=== PATIENT | female | born 1970 | race American Indian/Alaskan Native ===

== ENCOUNTER 2017-04-01 16:34 | Emergency (ER) | payer BC, OTHER ==
[2017-04-01 17:46] LABS: Anion Gap 16 mmol/L; Blood Urea Nitrogen 6 mg/dL (7-17); Carbon Dioxide 26 mmol/L (22-30); Chloride 98.4 mmol/L (98-107); Glucose 203 mg/dL (65-100); Potassium 4.1 mmol/L (3.6-5.0); Sodium 136 mmol/L (137-145)
[2017-04-01 17:57] LABS: Eosinophils % (Auto) 1.5 % (0.0-4.3); Mean Corpuscular HGB Conc 29 % (30-34); Platelet Count 280 K/mm3 (140-440); Red Blood Count 4.88 M/mm3 (3.65-5.03); Red Cell Distribution Width 19.4 % (13.2-15.2); White Blood Count 9.1 K/mm3 (4.5-11.0)
[2017-04-01 17:58] LABS: Hematocrit 31.7 % (30.3-42.9); Hemoglobin 9.1 gm/dl (10.1-14.3); Mean Corpuscular Hemoglobin 19 pg (28-32); Mean Corpuscular Volume 65 fl (79-97)
[2017-04-01] MEDS ORDERED: TYLENOL PO ONE (22:27)
[2017-04-01] MEDS ORDERED: TYLENOL ONE (22:32)
[2017-04-01] MEDS ORDERED: ZOFRAN ODT PO ONE (23:31)
--- NOTE | 2017-04-02 00:16 | Emergency Department Report ---
ED Female HPI - General Chief complaint: Vaginal Bleeding Stated complaint: VAGINAL BLEEDING,VOMITING Time Seen by Provider: 04/02/17 00:16 Source: patient, RN notes reviewed, old records reviewed Mode of arrival: Ambulatory Limitations: No Limitations - History of Present Illness Initial comments: This is a 47-year-old female, who was previously unknown to me, with a past medical history of uterine fibroids, presents to the ER with lower abdominal cramping, nausea, clear, nonbilious and non-bloody emesis, and vaginal bleeding. Her symptoms have been going on for the past few days. The abdominal cramping is in the lower region, does not radiate anywhere, increases with palpation and decreases with rest. No irritative or obstructive urinary symptoms. No headache, neck pain, chest pain, shortness of breath. MD Complaint: vaginal bleeding -: Gradual Location: suprapubic Severity: moderate Quality: cramping Consistency: intermittent Improves with: other (rest) Worsens with: movement Are you Now?: No Associated Symptoms: vaginal discharge, abdominal pain, nausea/vomiting, loss of appetite, weakness - Related Data Sexually active: Yes Home Medications Medication Instructions Recorded Confirmed Last Taken Olmesartan/Hydrochlorothiazide 1 tab PO QDAY 10/27/13 09/25/14 09/24/14 [Benicar HCT 40-12.5 mg] Sucralfate [Carafate] 1 gm PO Q6HR 09/25/14 09/25/14 09/24/14 19:00 Previous Rx's Medication Instructions Recorded Last Taken Type Ketorolac [Toradol] 10 mg PO Q6H PRN #20 tablet 04/02/17 Unknown Rx Ondansetron [Zofran Odt] 4 mg PO QID PRN #20 tab.rapdis 04/02/17 Unknown Rx Promethazine [Phenergan SUPPOS] 50 mg WI Q6H PRN #20 supp.rect 04/02/17 Unknown Rx Allergies Allergy/AdvReac Type Severity Reaction Status Date / Time aspirin Allergy Unknown Verified 09/25/14 01:48 ED Review of Systems ROS: Stated complaint: VAGINAL BLEEDING,VOMITING Other details as noted in HPI Constitutional: denies: fever Eyes: denies: eye discharge ENT: denies: epistaxis Respiratory: denies: cough Cardiovascular: denies: chest pain Gastrointestinal: abdominal pain Genitourinary: abnormal menses. denies: dysuria Musculoskeletal: denies: back pain Skin: denies: lesions Neurological: denies: weakness ED Past Medical Hx - Past Medical History Previous Medical History?: Yes Hx Hypertension: Yes Hx Asthma: Yes Additional medical history: gastritis, Uterine fibroids - Surgical History Past Surgical History?: Yes Additional Surgical History: x2, Uterine ablation - Social History Smoking Status: Never Smoker Substance Use Type: Alcohol, Non Opiate Pain - Medications Home Medications: Home Medications Medication Instructions Recorded Confirmed Last Taken Type Olmesartan/Hydrochlorothiazide 1 tab PO QDAY 10/27/13 09/25/14 09/24/14 History [Benicar HCT 40-12.5 mg] Sucralfate [Carafate] 1 gm PO Q6HR 09/25/14 09/25/14 09/24/14 19:00 History Ketorolac [Toradol] 10 mg PO Q6H PRN #20 tablet 04/02/17 Unknown Rx Ondansetron [Zofran Odt] 4 mg PO QID PRN #20 tab.rapdis 04/02/17 Unknown Rx Promethazine [Phenergan SUPPOS] 50 mg WI Q6H PRN #20 supp.rect 04/02/17 Unknown Rx ED Physical Exam - General Limitations: No Limitations General appearance: alert, in no apparent distress - Head Head exam: Present: atraumatic, normocephalic - Eye Eye exam: Present: normal appearance, EOMI. Absent: nystagmus - ENT ENT exam: Present: normal exam, normal orophraynx, mucous membranes moist, normal external ear exam - Neck Neck exam: Present: normal inspection, full ROM. Absent: tenderness, meningismus - Respiratory Respiratory exam: Present: normal lung sounds bilaterally. Absent: respiratory distress, wheezes, rales, rhonchi, stridor, chest wall tenderness - Cardiovascular Cardiovascular Exam: Present: normal rhythm, tachycardia, normal heart sounds. Absent: systolic murmur, diastolic murmur, rubs, gallop - GI/Abdominal GI/Abdominal exam: Present: soft, tenderness, normal bowel sounds, other (there is suprapubic tenderness. There is no right lower quadrant tenderness. No rebound, guarding or peritoneal signs). Absent: distended, guarding, rebound, rigid, pulsatile mass - External exam: Present: normal external exam Speculum exam: Present: normal speculum exam, vaginal bleeding Bi-manual exam: Present: normal bi-manual exam, other (escorted by ER neurodiagnostic technologist hvac installation technician BURTON ACKERMAN). Absent: cervical motion tendernes, adnexal tenderness , adnexal mass - Extremities Exam Extremities exam: Present: normal inspection, full ROM, normal capillary refill. Absent: pedal edema, joint swelling, calf tenderness - Back Exam Back exam: Present: normal inspection, full ROM. Absent: tenderness, CVA tenderness (R), CVA tenderness (L), muscle spasm, paraspinal tenderness, vertebral tenderness - Neurological Exam Neurological exam: Present: alert, oriented X3, normal gait, other (Extraocular movements intact. Tongue midline. No facial droop. Facial sensation intact to light touch in the V1, V2, V3 distribution bilaterally. 5 and 5 strength in 4 extremities.. Sensation is intact to light touch in 4 extremities.). Absent : motor sensory deficit - Psychiatric Psychiatric exam: Present: normal affect, normal mood - Skin Skin exam: Present: warm, dry, intact, normal color. Absent: rash ED Course Vital Signs 04/01/17 04/01/17 04/02/17 16:57 21:02 00:45 Temperature 98.8 F 98.7 F 98.1 F Pulse Rate 110 H 105 H 122 H Respiratory 22 18 20 Rate Blood Pressure 184/121 162/107 Blood Pressure 177/106 [Left] O2 Sat by Pulse 99 100 99 Oximetry 04/02/17 03:26 Temperature Pulse Rate 98 H Respiratory 20 Rate Blood Pressure Blood Pressure 132/77 [Left] O2 Sat by Pulse 99 Oximetry ED Medical Decision Making - Lab Data Result diagrams: 04/01/17 17:10 04/01/17 17:10 Vital Signs 04/01/17 04/01/17 04/02/17 16:57 21:02 00:45 Temperature 98.8 F 98.7 F 98.1 F Pulse Rate 110 H 105 H 122 H Respiratory 22 18 20 Rate Blood Pressure 184/121 162/107 Blood Pressure 177/106 [Left] O2 Sat by Pulse 99 100 99 Oximetry 04/02/17 03:26 Temperature Pulse Rate 98 H Respiratory 20 Rate Blood Pressure Blood Pressure 132/77 [Left] O2 Sat by Pulse 99 Oximetry Lab Results 04/01/17 04/01/17 04/01/17 Range/Units 17:10 17:10 17:15 WBC 9.1 (4.5-11.0) K/mm3 RBC 4.88 (3.65-5.03) M/mm3 Hgb 9.1 L (10.1-14.3) gm/dl Hct 31.7 (30.3-42.9) % MCV 65 L (79-97) fl MCH 19 L (28-32) pg MCHC 29 L (30-34) % RDW 19.4 H (13.2-15.2) % Plt Count 280 (140-440) K/mm3 Lymph % (Auto) 23.9 (13.4-35.0) % [place] % (Auto) 4.9 (0.0-7.3) % Eos % (Auto) 1.5 (0.0-4.3) % Baso % (Auto) 1.0 (0.0-1.8) % Lymph # 2.2 (1.2-5.4) K/mm3 [place] # 0.4 (0.0-0.8) K/mm3 Eos # 0.1 (0.0-0.4) K/mm3 Baso # 0.1 (0.0-0.1) K/mm3 Seg Neutrophils % 68.7 (40.0-70.0) % Seg Neutrophils # 6.3 (1.8-7.7) K/mm3 Sodium 136 L (137-145) mmol/L Potassium 4.1 (3.6-5.0) mmol/L Chloride 98.4 (98-107) mmol/L Carbon Dioxide 26 (22-30) mmol/L Anion Gap 16 mmol/L BUN 6 L (7-17) mg/dL Creatinine 0.5 L (0.7-1.2) mg/dL Estimated GFR > 60 ml/min BUN/Creatinine Ratio 12.00 % Glucose 203 H (65-100) mg/dL Calcium 9.0 (8.4-10.2) mg/dL HCG, Qual (Negative) Urine Color (Yellow) Urine Turbidity (Clear) Urine pH (5.0-7.0) Ur Specific [place] (1.003-1.030) Urine Protein (Negative) mg/dL Urine Glucose (UA) (Negative) mg/dL Urine Ketones (Negative) mg/dL Urine Blood (Negative) Urine Nitrite (Negative) Urine Bilirubin (Negative) Urine Urobilinogen (<2.0) mg/dL Ur Leukocyte Esterase (Negative) Urine WBC (Auto) (0.0-6.0) /HPF Urine RBC (Auto) (0.0-6.0) /HPF U Epithel Cells (Auto) (0-13.0) /HPF Urine Bacteria (Auto) (Negative) /HPF Blood Type A POSITIVE Antibody Screen Negative 04/01/17 04/02/17 Range/Units 22:45 02:19 WBC (4.5-11.0) K/mm3 RBC (3.65-5.03) M/mm3 Hgb (10.1-14.3) gm/dl Hct (30.3-42.9) % MCV (79-97) fl MCH (28-32) pg MCHC (30-34) % RDW (13.2-15.2) % Plt Count (140-440) K/mm3 Lymph % (Auto) (13.4-35.0) % [place] % (Auto) (0.0-7.3) % Eos % (Auto) (0.0-4.3) % Baso % (Auto) (0.0-1.8) % Lymph # (1.2-5.4) K/mm3 [place] # (0.0-0.8) K/mm3 Eos # (0.0-0.4) K/mm3 Baso # (0.0-0.1) K/mm3 Seg Neutrophils % (40.0-70.0) % Seg Neutrophils # (1.8-7.7) K/mm3 Sodium (137-145) mmol/L Potassium (3.6-5.0) mmol/L Chloride (98-107) mmol/L Carbon Dioxide (22-30) mmol/L Anion Gap mmol/L BUN (7-17) mg/dL Creatinine (0.7-1.2) mg/dL Estimated GFR ml/min BUN/Creatinine Ratio % Glucose (65-100) mg/dL Calcium (8.4-10.2) mg/dL HCG, Qual Negative (Negative) Urine Color Yellow (Yellow) Urine Turbidity Clear (Clear) Urine pH 7.0 (5.0-7.0) Ur Specific [place] 1.006 (1.003-1.030) Urine Protein <15 mg/dl (Negative) mg/dL Urine Glucose (UA) Neg (Negative) mg/dL Urine Ketones Tr (Negative) mg/dL Urine Blood Lg (Negative) Urine Nitrite Neg (Negative) Urine Bilirubin Neg (Negative) Urine Urobilinogen < 2.0 (<2.0) mg/dL Ur Leukocyte Esterase Sm (Negative) Urine WBC (Auto) 11.0 H (0.0-6.0) /HPF Urine RBC (Auto) > 182.0 (0.0-6.0) /HPF U Epithel Cells (Auto) 2.0 (0-13.0) /HPF Urine Bacteria (Auto) 2+ (Negative) /HPF Blood Type Antibody Screen - Radiology Data Radiology results: report reviewed, image reviewed Transvaginal ultrasound demonstrates fibroids. - Medical Decision Making Differential diagnosis: Dysfunctional uterine bleeding, fibroids, menstruation, menopause Assessment and plan: For a 7-year-old female with intermittent crampy painful vaginal bleeding, she is afebrile, with reassuring vital signs, her tachycardia has resolved, she is currently able to tolerate liquid feedings, and feels clinically improved to go home. She is accompanied by family member who is going to drive her home. She will be discharged with nausea medication, pain medication, instructions to follow up with outpatient gynecology. She is currently considering a hysterectomy. She reports being able to tolerate ibuprofen, Motrin, does not like aspirin because it upsets her stomach. However, she does not have a true nsaid allergy. Critical care attestation.: If time is entered above; I have spent that time in minutes in the direct care of this critically ill patient, excluding procedure time. ED Disposition Clinical Impression: Vaginal bleeding Disposition: DC-01 TO HOME OR SELFCARE Is pt being admited?: No Does the pt Need Aspirin: No Condition: Stable Instructions: Menstruation (ED) Additional Instructions: Take the pain medication, nausea medication as directed. Follow up with a scraper tender within the next month. Return to the ER right away with new pain, worsened pain, migration of pain, fevers, chills, lethargy, irritability, projectile vomiting, change in mental status, inability to tolerate liquid feeds. Return to the ER right away with bleeding within 2. Soaked through and through per hour, dizziness, lightheadedness, chest pain, shortness of breath, passing out. Prescriptions: Ketorolac [Toradol] 10 mg PO Q6H PRN #20 tablet PRN Reason: Pain Ondansetron [Zofran Odt] 4 mg PO QID PRN #20 tab.rapdis PRN Reason: Nausea Promethazine [Phenergan SUPPOS] 50 mg WI Q6H PRN #20 supp.rect PRN Reason: Nausea Referrals: KAMRYN DALE MD [Primary Care Provider] - 3-5 Days [facility] [Provider Group] - 3-5 Days [facility] [Provider Group] - 3-5 Days [facility] [Provider Group] - 3-5 Days Forms: Accompanied Note, Work/School Release Form(ED)
[2017-04-02] MEDS ORDERED: ZOFRAN IV ONE (01:46)
[2017-04-02] MEDS ORDERED: DILAUDID IV ONE (01:46)
[2017-04-02] MEDS ORDERED: TORADOL IV ONE (01:47)
--- NOTE | 2017-04-02 02:18 | Ultrasound Report ---
FINAL REPORT PROCEDURE: US TRANSVAGINAL TECHNIQUE: Real-time transabdominal sonography in multiple planes of the pelvis was performed with image documentation. This examination was performed without Doppler. Vascular abnormalities, including ovarian torsion, will not be detectable without Doppler evaluation. HISTORY: VAG BLEEDING HX FIBROIDS COMPARISON: No prior studies are available for comparison. FINDINGS: UTERUS Size: 14.5 x 6.5 x 9.8 cm. Endometrial thickness: 12.1 mm. Orientation: anteverted. Cervix: There is fluid in the endocervical canal.. Fibroids/masses: There is a submucosal fibroid measuring 7.9 x 6.7 x 6.8 centimeters. There is an intramural fibroid in the posterior body measuring 1.8 x 1.7 x 1.4 centimeters.. The ovaries are not identified. Pelvic fluid: None. Other: None. IMPRESSION: There is fluid in the endocervical canal.. There is a submucosal fibroid measuring 7.9 x 6.7 x 6.8 centimeters. There is an intramural fibroid in the posterior body measuring 1.8 x 1.7 x 1.4 centimeters.. The ovaries are not identified. . There is no free pelvic fluid.
--- NOTE | 2017-04-02 02:18 | Ultrasound Report ---
FINAL REPORT PROCEDURE: US TRANSVAGINAL TECHNIQUE: Real-time transvaginal sonography in multiple planes of the pelvis was performed with image documentation. This examination was performed without Doppler. Vascular abnormalities, including ovarian torsion, will not be detectable without Doppler evaluation. CPT 79409 HISTORY: VAG BLEEDING HX FIBROIDS COMPARISON: No prior studies are available for comparison. FINDINGS: UTERUS Size: 14.5 x 6.5 x 9.8 cm. Endometrial thickness: 12.1 mm. Orientation: anteverted. Cervix: There is fluid in the endocervical canal.. Fibroids/masses: There is a submucosal fibroid measuring 7.9 x 6.7 x 6.8 centimeters. There is an intramural fibroid in the posterior body measuring 1.8 x 1.7 x 1.4 centimeters.. The ovaries are not identified. Pelvic fluid: None. Other: None. IMPRESSION: There is fluid in the endocervical canal.. There is a submucosal fibroid measuring 7.9 x 6.7 x 6.8 centimeters. There is an intramural fibroid in the posterior body measuring 1.8 x 1.7 x 1.4 centimeters.. The ovaries are not identified. . There is no free pelvic fluid.
[2017-04-02 02:35] LABS: Bacteria,Urine 2+ /HPF (Negative); Bilirubin,Urine NEG (Negative); Blood,Urine LG (Negative); Ketones,Urine TR mg/dL (Negative); Leukocyte Esterase,Urine SM (Negative); Nitrite,Urine NEG (Negative); Protein,Urine <15 mg/dL mg/dL (Negative); Urobilinogen,Urine < 2.0 mg/dL (<2.0)
[2017-04-02 02:37] LABS: RBC,Urine > 182.0 /HPF (0.0-6.0)
[2017-04-02 03:28] VITALS: BP 132/77
== END 2017-04-02 04:07 | disposition home or self-care (01) ==
LOC: ED 16:34
DX: N93.9 Abnormal uterine and vaginal bleeding, unspecified (principal); I10 Essential (primary) hypertension; Z88.6 Allergy status to analgesic agent
CPT/HCPCS: 36415; 76830; 76856; 80048; 81001; 84703; 85025; 86850; 86900; 86901; 87210; 87591; 96374; 96375; 99285; J1170; J1885; J2405; Q0162

== ENCOUNTER 2017-06-30 12:28 | Observation (INO) | payer BC ==
--- NOTE | 2017-06-28 12:11 | Anesthesia Consultation ---
Anesthesia Consult and Med Hx Date of service: 06/30/17 - Airway ROM Head & Neck: Adequate Mental/Hyoid Distance: Adequate Mallampati Class: Class III Intubation Access Assessment: Possibly Difficult - Pulmonary Exam CTA: Yes - Cardiac Exam Cardiac Exam: RRR Anesthetic Concerns: L upper CI missing - Pre-Operative Health Status ASA Pre-Surgery Classification: ASA3 Proposed Anesthetic Plan: General - Pulmonary Hx Smoking: No Hx Asthma: Yes (INHALERS PRN) Hx Sleep Apnea: Yes (DX SLEEP APNEA WITH CPAP USE) - Cardiovascular System Hx Hypertension: Yes (X 5 YRS) - Endocrine Hx Non-Insulin Dependent Diabetes: Yes (REcent elevated A1C, on metformin for one week) - Hematic Hx Anemia: Yes - Other Systems Hx Cancer: No Hx Obesity: Yes (morbid)
[2017-06-28 12:52] LABS: BUN/Creatinine Ratio 14; Blood Urea Nitrogen 7 mg/dL (7-17); Calcium 8.6 mg/dL (8.4-10.2); Hemolysis Index 0
[2017-06-28 12:58] LABS: Basophils # (Auto) 0.1 K/mm3 (0.0-0.1); Basophils % (Auto) 1.2 % (0.0-1.8); Eosinophils # (Auto) 0.1 K/mm3 (0.0-0.4); Eosinophils % (Auto) 1.7 % (0.0-4.3); Lymphocytes # (Auto) 2.2 K/mm3 (1.2-5.4); Lymphocytes % (Auto) 27.8 % (13.4-35.0); Mean Corpuscular HGB Conc 29 % (30-34); Monocytes # (Auto) 0.4 K/mm3 (0.0-0.8); Monocytes % (Auto) 4.6 % (0.0-7.3); Platelet Count 267 K/mm3 (140-440); Red Blood Count 4.43 M/mm3 (3.65-5.03)
[2017-06-28 13:05] LABS: Hematocrit 28.7 % (30.3-42.9); Hemoglobin 8.2 gm/dl (10.1-14.3); Mean Corpuscular Hemoglobin 19 pg (28-32); Mean Corpuscular Volume 65 fl (79-97)
--- NOTE | 2017-06-30 06:15 | History and Physical Report ---
History of Present Illness Date of examination: 06/30/17 Date of admission: 06/30/2017 Chief complaint: dysfunctional bleeding and anemia History of present illness: 47y/o with dysfunctional uterine bleeding and multiple fibroids. The patient's bleeding is so severe she has developed iron deficiency anemia. Ultrasound demonstrates an enlarged uterus of 14.5cm with the largest myoma being a submucosal 8cm fibroid. Treatment options have been discussed.The patient is aware she will require a blood transfusion prior to surgery Patient has been reassessed/reevaluated/re-examined. H&P has been reviewed. No interval changes. Past History Past Medical History: asthma, hypertension, other (gastritis; obesity; anemia) Past Surgical History: section, other (eye surgery) Social history: single - Obstetrical History : 4 Para: 2 Hx # Term Pregnancies: 2 Number of Pregnancies: 0 Spontaneous Abortions: 0 Induced : 2 Number of Living Children: 2 Medications and Allergies Allergies Allergy/AdvReac Type Severity Reaction Status Date / Time aspirin Allergy ABD PAIN Verified 06/24/17 10:30 Iodinated Contrast- Oral and Allergy Itching Verified 06/24/17 10:30 IV Dye ondansetron Allergy Vomiting Verified 06/24/17 10:30 [From Zofran (as hydrochloride)] Home Medications Medication Instructions Recorded Confirmed Last Taken Type Sucralfate [Carafate] 1 gm PO QID 09/25/14 06/30/17 06/29/17 History ALBUTEROL Inhaler [Proair] 2 puff IH QID PRN 06/24/17 06/30/17 Unknown History Ascorbic Acid [Vitamin C] 1,000 mg PO BID 06/24/17 06/30/17 06/29/17 History Dicyclomine [Bentyl] 10 mg PO TID 06/24/17 06/30/17 06/29/17 History Ferrous Sulfate [Iron] 325 mg PO DAILY 06/24/17 06/30/17 06/29/17 History Metformin HCl [Glucophage] 1,000 mg PO BID 06/24/17 06/30/17 06/29/17 History Metoclopramide [Reglan] 10 mg PO PRN PRN 06/24/17 06/30/17 06/29/17 History Olmesartan (Nf) [Benicar (Nf)] 40 mg PO QDAY 06/24/17 06/30/17 06/30/17 History Pantoprazole [Protonix] 40 mg PO QDAY 06/24/17 06/30/17 06/30/17 History amLODIPine [Norvasc] 5 mg PO DAILY 06/24/17 06/30/17 06/30/17 History Active Meds: Active Medications Sodium Chloride (Nacl 0.9% 1000 Ml) 1,000 mls @ 125 mls/hr IV DIRECT MIRTHA Cefazolin Sodium (Ancef/Sterile Water 2 Gm/20 Ml) 2 gm in 20 mls @ 80 mls/hr IV PREOP MIRTHA PRN Reason: Protocol Sodium Chloride (Nacl 0.9% 500 Ml) 500 mls @ 0 mls/hr IV ONCE ONE PRN Reason: As Directed Stop: 06/30/17 06:09 - Vital Signs Vital signs: Vital Signs Temp Pulse Resp BP 99.4 F 88 18 148/92 06/28/17 11:30 06/28/17 11:30 06/28/17 11:30 06/28/17 11:30 Temp Pulse Resp BP Pulse Ox 99.4 F 88 18 148/92 06/28/17 11:30 06/28/17 11:30 06/28/17 11:30 06/28/17 11:30 Results Result Diagrams: 06/28/17 11:40 06/28/17 11:40 Abnormal lab results 06/28/17 Range/Units 11:40 Crossmatch See Detail All other labs normal. Assessment and Plan - Patient Problems (1) Leiomyoma Current Visit: Yes Status: Acute Plan to address problem: proceed with a robotic hysterectomy and transfusion of 2 units prbcs (2) Menorrhagia Current Visit: Yes Status: Acute (3) Anemia Current Visit: Yes Status: Acute
[~2017-06-30 12:28] MED LIST: ANCEF/STERILE WATER 2 GM/20 ML 2 GM/20 ML SYRINGE IV SCH; NACL 0.9% 1000 ML 1,000 ML IV SCH; NACL 0.9% 500 ML 500 ML IV ONE; PEPCID IV NR; VERSED IV NR
[2017-06-30] MEDS ORDERED: PROVENTIL IH NR (13:30)
[2017-06-30] MEDS ORDERED: DECADRON IV ONE (14:00)
[2017-06-30] MEDS ORDERED: PEPCID IV NR (14:00)
[2017-06-30] MEDS ORDERED: VERSED IV NR (14:00)
[2017-06-30] MEDS ORDERED: NEURONTIN PO NR (14:00)
[2017-06-30] MEDS ORDERED: SUBLIMAZE IV ONE (14:00)
--- NOTE | 2017-06-30 14:19 | Anesthesia Day of Surgery ---
Anesthesia Day of Surgery - Day of Surgery Patient Examined: Yes Patient H&P Reviewed: Yes Patient is NPO: Yes
[2017-06-30] MEDS ORDERED: DIPRIVAN 10 MG/ML IV ONE (14:27)
[2017-06-30] MEDS ORDERED: DILAUDID ONE (14:27)
[2017-06-30] MEDS ORDERED: ZEMURON IV ONE (14:29)
[2017-06-30] MEDS ORDERED: XYLOCAINE MPF 2% ONE (14:29)
[2017-06-30] MEDS ORDERED: THROMBIN (BOVINE) TP ONE ×2 (14:46→16:50)
[2017-06-30] MEDS ORDERED: NEOSPORIN GU IR ONE ×2 (14:47→16:50)
[2017-06-30] MEDS ORDERED: ANCEF/STERILE WATER 2 GM/20 ML IV NR (15:00)
[2017-06-30] MEDS ORDERED: DECADRON ONE (15:36)
[2017-06-30] MEDS ORDERED: NEO SYNEPHRINE/NS Syringe(OR USE) IV ONE (15:36)
[2017-06-30] MEDS ORDERED: NACL 0.9% 1000 ML 1,000 ML ONE ×2 (15:54→16:41)
[2017-06-30] MEDS ORDERED: GELFOAM POWDER 1GM MM ONE ×2 (16:00→16:50)
[2017-06-30] MEDS ORDERED: NACL 0.9% 100 ML ONE (16:05)
[2017-06-30] MEDS ORDERED: NEO SYNEPHRINE ONE (16:05)
[2017-06-30] MEDS ORDERED: BLOXIVERZ ONE (16:36)
[2017-06-30] MEDS ORDERED: ROBINUL ONE (16:37)
--- NOTE | 2017-06-30 16:39 | Operative Report ---
Operative Report Operative Report: Date of surgery: 06/30/2017 Preoperative diagnoses: Symptomatic uterine fibroids; menorrhagia; dysmenorrhea ; iron deficiency anemia Postoperative diagnoses: Same as above Procedure: Robotic hysterectomy; bilateral salpingectomy; lysis of adhesions Surgeon: Chiara Carson M.D. Software Publisher: Jenaro Romero Anesthesia: Gen. endotracheal anesthesia Estimated blood loss: Less than 100 mL Pathology: Uterus, cervix, bilateral tubes, leiomyoma Indication: 47-year-old 0-2 with symptomatic uterine fibroids. The patient experienced significant menorrhagia causing iron deficiency anemia. The patient was transfused 2 units packed red blood cells prior to surgery. Procedure: The patient was taken to the operating room and given general endotracheal anesthesia without complication. She is prepped and draped in a normal sterile fashion. A bivalve speculum was placed in the patient's vagina and a single- tooth tenaculum placed on the anterior lip of the cervix. The uterus was sounded with the uterine sound. A Proteopure uterine manipulator was placed in the bivalve speculum was then removed. Attention was then turned to the patient's abdomen where a millimeter supra umbilical skin incision was then made. A Veress needle was placed and peritoneal entry was verified water-filled syringe. Insufflation of the peritoneal cavity was performed with CO2 gas. The 12 mm trocar was then placed under direct visualization. An additional 8 mm trocar was placed on the patient's left and right lateral side just opposite of the supraumbilical trocar. An additional 5 mm right lateral trocar was then placed as the accessory port. The patient was then placed in steep Trendelenburg. The da Roverto robot was then engaged. A fenestrated forcep was placed in arm 2 and a vessel sealer was placed in arm 1. The surgeon then transferred to the surgical console. General survey of the patient's abdomen and pelvis revealed evidence of omental adhesions adherent to the anterior abdominal wall. Lysis of adhesions had to be performed in order to release the omental attachments. The uterus was enlarged with findings of uterine fibroids. The uterus was densely adherent to the anterior abdominal wall. The monopolar scissors were used to excise the adhesions. There was evidence of a left ovarian simple cyst. The right ovary was normal along with the fallopian tubes bilaterally. The mesosalpinx was then isolated on the right. The vessel sealer was used to coagulate the mesosalpinx which was then transected. The tube was transected from the ovary. The tubo-ovarian ligament was then coagulated and transected. The round ligament was then coagulated and transected also. The vesicouterine peritoneum was then entered from the patient 's right side. The uterine vessels were then coagulated with the vessel sealer. The vessels were then transected . Attention was then turned to the patient's left side where the tubo-ovarian ligament and mesosalpinx were again isolated coagulated and transected. The vesical peritoneum was then entered from the left and joined in the midline. Peritoneum was reflected off of the lower uterine segment. Uterine vessels were then coagulated and then transected. The blood supply to the uterus was adequately contained. A myomectomy was performed along with bivalving the uterus in order to decompress the uterus for passage through the vagina. A posterior colpotomy was made. The V care ring was visualized. Posterior colpotomy was created with the monopolar scissors. The incision was continued circumferentially until anterior colpotomy was made. The cervix and uterus were amputated from the vaginal cuff. The uterus was then removed along with the leiomyomas, and tubes bilaterally through the vagina and a warm laparotomy sponge was placed and maintain the pneumoperitoneum. A cystotomy was performed of the left ovarian cyst producing clear fluid. The vaginal cuff was then closed in a running fashion with V lock suture. Irrigation of the pelvis was performed. Gelfoam with thrombin was applied to the incision. The supraumbilical 12 mm trocar site was closed with the Grover Worley device. The skin was then reapproximated with 4-0 Monocryl. The tissue was sent to pathology which included the cervix and uterus. The patient was then successfully extubated. She was then taken to the recovery room in stable condition. All sponge laps and needle counts were correct x2.
[2017-06-30] MEDS ORDERED: NARCAN 0.4 MG/1 ML IV PRN (16:40)
[2017-06-30] MEDS ORDERED: TYLENOL PO PRN (16:41)
[2017-06-30] MEDS ORDERED: NACL 0.9% IR ONE ×2 (16:50)
[2017-06-30] MEDS ORDERED: D5LR 1,000 ML IV SCH (17:00)
[2017-06-30] MEDS ORDERED: MORPHINE PCA 30MG/30ML IV SCH (17:00)
[2017-06-30] MEDS: LACTATED RINGERS 1,000 ML IV SCH (20:51)
[2017-06-30] MEDS: REGLAN IV PRN (23:36)
[2017-07-01 05:30] LABS: Hematocrit 31.7 % (30.3-42.9); Hemoglobin 9.6 gm/dl (10.1-14.3)
[2017-07-01 06:08] LABS: BUN/Creatinine Ratio 13; Blood Urea Nitrogen 4 mg/dL (7-17); Calcium 8.3 mg/dL (8.4-10.2); Hemolysis Index 46
[2017-07-01] MEDS: LACTATED RINGERS 1,000 ML IV SCH ×2 (07:45→16:35)
[2017-07-01] MEDS: REGLAN IV PRN ×2 (08:16→13:24)
[2017-07-01] MEDS: PERCOCET 5/325 PO PRN ×2 (13:23→23:52)
--- NOTE | 2017-07-01 14:11 | Progress Note ---
Assessment and Plan A/P POD#1 s/p Robotic hysterectomy; bilateral salpingectomy; lysis of adhesions doing well pain controlled ambulating well will give meds prior to diet ( previously ) will draw CBC close attention to VSS Subjective - Subjective Date of service: 07/01/17 Principal diagnosis: s/p Robotic hysterectomy; bilateral salpingectomy; lysis of adhesions Patient reports: appetite normal, voiding normally, pain well controlled, flatus , ambulating normally Objective - Vital Signs Latest vital signs: Vital Signs Temp Pulse Pulse Resp BP BP Pulse Ox 07/01/17 08:59 98.8 F 107 H 14 143/89 99 07/01/17 05:55 18 07/01/17 04:00 98.8 F 118 H 20 138/90 99 07/01/17 01:55 18 06/30/17 23:24 98.5 F 121 H 20 155/95 97 06/30/17 19:58 98.5 F 118 H 20 151/94 97 06/30/17 19:20 110 H 96 06/30/17 19:00 97.8 F 114 H 15 142/85 95 06/30/17 18:30 105 H 15 138/82 95 06/30/17 18:15 102 H 15 144/77 96 06/30/17 18:00 97.1 F L 108 H 15 137/78 100 06/30/17 17:45 102 H 15 141/83 100 06/30/17 17:30 102 H 14 141/86 100 06/30/17 17:15 100 H 14 135/84 100 06/30/17 17:10 99 H 12 145/87 100 06/30/17 17:05 99 H 15 139/85 100 06/30/17 16:59 97.6 F 103 H 14 142/84 99 06/30/17 14:53 97.6 F 112 H 13 139/86 97 06/30/17 14:40 98.8 F 114 H 14 158/83 100 06/30/17 14:30 98.8 F 115 H 13 147/95 100 06/30/17 14:15 98.8 F 113 H 15 154/88 100 Intake and Output 06/30/17 07/01/17 07/01/17 23:59 07:59 15:59 Intake Total 600 1000 Output Total 975 3100 Balance -375 -2100 Intake: IV 600 1000 Lactated Ringers 1,000 ml 1000 @ 125 mls/hr IV DIRECT [facility] Rx#:[id number] Oral 0 Output: Urine 975 3100 Indwelling Catheter 150 3100 Other: Total, Output Amount 150 3100 Voiding Method Indwelling Catheter Toilet - Exam Breasts: Present: normal Cardiovascular: Present: Regular rate, Normal S1 Lungs: Present: Clear to auscultation, Normal air movement Abdomen: Present: normal appearance, soft, normal bowel sounds. Absent: distention, tenderness Vulva: both: normal Uterus: Present: normal, firm Extremities: Present: normal Deep Tendon Reflex Grade: Normal +2 Incision: Present: normal, dry, intact - Labs Labs: Abnormal lab results 06/28/17 06/30/17 06/30/17 Range/Units 11:40 12:58 17:45 Hgb (10.1-14.3) gm/dl BUN (7-17) mg/dL Creatinine (0.7-1.2) mg/dL Glucose (65-100) mg/dL POC Glucose 125 H 222 H (70-105) Calcium (8.4-10.2) mg/dL Crossmatch See Detail 06/30/17 07/01/17 07/01/17 Range/Units 19:45 04:07 04:07 Hgb 9.6 L (10.1-14.3) gm/dl BUN 4 L (7-17) mg/dL Creatinine 0.3 L (0.7-1.2) mg/dL Glucose 141 H (65-100) mg/dL POC Glucose 200 H (70-105) Calcium 8.3 L (8.4-10.2) mg/dL Crossmatch 07/01/17 Range/Units 06:52 Hgb (10.1-14.3) gm/dl BUN (7-17) mg/dL Creatinine (0.7-1.2) mg/dL Glucose (65-100) mg/dL POC Glucose 136 H (70-105) Calcium (8.4-10.2) mg/dL Crossmatch
[2017-07-01] MEDS: CARAFATE PO SCH (17:20)
[2017-07-01] MEDS: BENTYL PO SCH (17:20)
[2017-07-01] MEDS: MOTRIN PO PRN (23:52)
--- NOTE | 2017-07-02 08:12 | Progress Note ---
Assessment and Plan A: POD#2 s/p robotic hysterectomy, morbid obesity, Diabetes, HTN, Athsma, Gastritis Intermittent Tachycardia P: Repeat H/H and TSH Anticipate discharge later today with follow up in [address] Carson Subjective - Subjective Date of service: 07/02/17 Principal diagnosis: s/p Robotic hysterectomy; bilateral salpingectomy; lysis of adhesions Interval history: Pt without complaints. She would like to go home. Patient reports: appetite normal, voiding normally, pain well controlled, flatus , ambulating normally, no bowel movement, no nauseated Objective - Vital Signs Latest vital signs: Vital Signs Temp Pulse Pulse Resp BP BP Pulse Ox 07/02/17 04:26 98.7 F 111 H 20 149/94 92 07/02/17 00:45 98.7 F 113 H 20 140/89 94 07/01/17 21:05 99.1 F 109 H 20 148/87 93 07/01/17 19:25 111 H 96 07/01/17 16:32 99.0 F 103 H 16 120/73 120/73 93 07/01/17 11:31 98.4 F 104 H 20 135/78 92 07/01/17 08:59 98.8 F 107 H 14 143/89 99 Intake and Output 07/01/17 07/02/17 07/02/17 22:59 06:59 14:59 Intake Total 1200 840 Output Total 350 Balance 850 840 Intake: IV 1000 Lactated Ringers 1,000 ml 1000 @ 125 mls/hr IV DIRECT [facility] Rx#:[id number] Oral 200 840 Output: Urine 350 Void 350 Other: Total, Intake Amount 200 840 Total, Output Amount 350 Voiding Method Toilet Toilet # Voids Void 4 # Bowel Movements 0 - Exam Breasts: Present: deferred Cardiovascular: Present: Regular rate Lungs: Present: Clear to auscultation Abdomen: Present: soft (obese ), normal bowel sounds Extremities: Present: normal Incision: Present: intact - Labs Labs: Abnormal lab results 07/01/17 07/01/17 07/01/17 Range/Units 11:42 18:04 21:18 POC Glucose 119 H 145 H 154 H (70-105)
[2017-07-02] MEDS: CARAFATE PO SCH ×2 (08:14→11:57)
[2017-07-02] MEDS: BENTYL PO SCH ×2 (08:14→11:57)
--- NOTE | 2017-07-02 08:18 | Discharge Summary ---
Providers - Providers Date of Admission: 06/30/17 16:41 Date of discharge: 07/02/17 Attending physician: ALEJANDRO CHAPPELL Primary care physician: KAMRYN DALE Hospitalization Reason for admission: other (hysterectomy ) Procedure details: Please see operative report. Incision: intact Hospital course: Patient underwent robotic hysterectomy was tolerated well. Her postoperative course is uncomplicated and she went discharge criteria on postoperative day # 2. She'll follow up in the office in [address] Chappell. Condition at discharge: Stable Disposition: DC-01 TO HOME OR SELFCARE - Discharge Diagnoses (1) Morbid obesity Status: Acute (2) Hypertension Status: Acute Qualifiers: Hypertension type: unspecified Qualified Code(s): I10 - Essential (primary ) hypertension (3) Diabetes Status: Acute Qualifiers: Diabetes mellitus type: type 2 (4) Asthma Status: Acute (5) Anemia Status: Acute (6) Leiomyoma Status: Acute (7) Menorrhagia Status: Acute Plan - Discharge Medications Prescriptions: oxyCODONE /ACETAMINOPHEN [Percocet 5/325] 1 tab PO Q6HR PRN #45 tablet PRN Reason: Pain - Provider Discharge Summary Activity: routine, no sex for 6 weeks, no heavy lifting 4 weeks, no strenuous exercise Diet: routine Additional instructions: [] Smoking cessation referral if applicable(refer to patient education folder for contact #) [] Refer to [facility] Booklet Call your doctor immediately for: * Fever > 100.5 * Heavy vaginal bleeding ( >1 pad per hour) * Severe persistent headache * Shortness of breath * Reddened, hot, painful area to leg or breast * Drainage or odor from incision. * Keep incision clean and dry at all times and follow doctor's instructions regarding bathing/showering - Follow up plan Follow up: KAMRYN DALE MD [Primary Care Provider] - 7 Days ALEJANDRO CHAPPELL MD [Staff Physician] - 07/29/17 (Please schedule postoperative exam )
[2017-07-02] MEDS: MOTRIN PO PRN (08:24)
[2017-07-02] MEDS: PERCOCET 5/325 PO PRN (08:25)
[2017-07-02 08:55] LABS: Hematocrit 32.4 % (30.3-42.9); Hemoglobin 9.7 gm/dl (10.1-14.3)
[2017-07-02 09:12] VITALS: BP 140/74
== END 2017-07-02 14:35 | disposition home or self-care (01) ==
LOC: OR 12:28 → OB 16:41
PROVIDERS: ADMIT Obstetrics & Gynecology; ATTEND Obstetrics & Gynecology
PROC: 0UT94ZZ Resection of Uterus, Percutaneous Endoscopic Approach (ICD-10-PCS; principal; 2017-06-30)
DX: D25.0 Submucous leiomyoma of uterus (principal); N92.0 Excessive and frequent menstruation with regular cycle; N93.8 Other specified abnormal uterine and vaginal bleeding; N94.6 Dysmenorrhea, unspecified; D50.9 Iron deficiency anemia, unspecified; E66.01 Morbid (severe) obesity due to excess calories; I10 Essential (primary) hypertension; E11.9 Type 2 diabetes mellitus without complications; J45.909 Unspecified asthma, uncomplicated; R00.0 Tachycardia, unspecified; K29.70 Gastritis, unspecified, without bleeding
CPT/HCPCS: 36415; 36430; 58571; 80048; 82962; 84443; 84703; 85014; 85018; 85025; 86850; 86900; 86901; 86920; 88307; 96374; 96375; 96376; A4217; A4649; G0378; J0690; J1100; J1170; J2250; J2270; J2370; J2704; J2710; J2765; J7030; J7120; P9016; S2900; J1815; J3010